=== PATIENT | female | born 1975 | race Two or more races ===

== ENCOUNTER 2017-11-11 03:08 | Emergency (ER) | payer OTHER ==
[~2017-11-11] VITALS: Ht 157.5 cm; Wt 79.4 kg
[2017-11-11 03:20] VITALS: BP 130/87
[2017-11-11] MEDS ORDERED: BENADRYL25 M3 PO (03:26)
[2017-11-11] MEDS ORDERED: Dexamethasone 4mg/ml vial IM ONE (03:30)
--- NOTE | 2017-11-11 03:32 | Emergency Room Report ---
History of Present Illness General Chief Complaint: Allergic Reaction Source: Patient Present Illness HPI 42-year-old female p/w rash on arms, legs, abdomen for few hours, after taking new cough medicine as prescribed by her doctor Rash is limited to skin and does not involve mucosal surfaces. ? severe itchiness, no pain. Denies fever or chills, throat swelling, sob. No n/v/d. No new detergents, no exposure to outside grass/plants/poison misael, no new pets. This is the first time patient has experienced this rash. Allergies: Coded Allergies: No Known Allergies (Unverified , 11/11/17) Patient History Past Medical History: see triage record Past Surgical History: none Pertinent Family History: none Last Menstrual Period: October 18 Now: No Reviewed Nursing Documentation: PMH: Agreed; PSxH: Agreed Nursing Documentation-PMH Past Medical History: No Stated History Review of Systems All Other Systems: negative except mentioned in HPI Physical Exam Vital Signs Date Time Temp Pulse Resp B/P (MAP) Pulse Ox O2 Delivery O2 Flow Rate FiO2 11/11/17 03:11 97.5 91 18 132/87 98 Room Air 97.5 Sp02 EP Interpretation: reviewed, normal General Appearance: alert, GCS 15, non-toxic, moderate distress Head: normocephalic, atraumatic Eyes: bilateral eye normal inspection, bilateral eye PERRL, bilateral eye EOMI ENT: normal ENT inspection, normal pharynx, no angioedema, normal voice, moist mucus membranes Neck: normal inspection, full range of motion, supple Respiratory: normal inspection, lungs clear, normal breath sounds, no respiratory distress, no retraction, no wheezing, speaking full sentences, chest symmetrical Cardiovascular #1: normal inspection, regular rate, rhythm, no edema, normal capillary refill Cardiovascular #2: 2+ radial (R), 2+ radial (L) Gastrointestinal: normal inspection, non tender, soft, non-distended, no guarding Musculoskeletal: normal inspection, back normal, normal range of motion, non- tender Neurologic: normal inspection, alert, oriented x3, responsive, motor strength/ tone normal, sensory intact, normal gait, speech normal Psychiatric: normal inspection, judgement/insight normal, memory normal Skin: other - Erythematous, raised, urticarial, carry on rash generalized, noted on arms legs abdomen tender, blanching Medical Decision Making Diagnostic Impression: Primary Impression: Allergic reaction ER Course 42-year-old female p/w rash on abdomen, arms, legs, after taking new medication DDX: Allergic reaction vs. eczema vs. contact dermatitis vs. viral exanthem vs cellulitis No angioedema Plan: Benadryl Decadron ER course: Patient has remained stable in ED Patient given Decadron and Benadryl No respiratory symptoms Disposition: Patient will be discharged to home. Patient given prescription of Benadryl. Strict return precautions discussed with patient such as fever, chills, rapid spread of rash, chest pain, sob, throat swelling, n/v/d. Patient is to follow up with their PMD within 5 days. Patient verbalized understanding and agrees with plan. Please note that this Emergency Department Report was dictated using [employer] processing supervisor technology software, occasionally this can lead to erroneous entry secondary to interpretation by the dictation equipment Last Vital Signs Date Time Temp Pulse Resp B/P (MAP) Pulse Ox O2 Delivery O2 Flow Rate FiO2 11/11/17 03:11 97.5 91 18 132/87 98 Room Air 97.5 Disposition: HOME, SELF-CARE Condition: Improved Scripts Diphenhydramine HCl (Benadryl) 25 Mg Capsule 25 MG PO Q6H, #30 CAP Prov: Oswaldo Yu M.D. 11/11/17 Patient Instructions: Estrella Montalvoto-Read Oswaldo Yu M.D. Nov 11, 2017 03:32
[2017-11-11 03:43] VITALS: BP 130/87
== END 2017-11-11 03:43 | disposition home or self-care (01) ==
LOC: EMR 03:20
DX: T78.40XA Allergy, unspecified, initial encounter (principal); X58.XXXA Exposure to other specified factors, initial encounter; R21 Rash and other nonspecific skin eruption
CPT/HCPCS: 96372; 99283; J1100

== ENCOUNTER 2019-03-19 17:32 | Emergency (ER) | payer OTHER ==
[~2019-03-19] VITALS: Ht 154.9 cm; Wt 79.4 kg
[~2019-03-19 17:32] MED LIST: BENADRYL25 M3 PO
[2019-03-19] MEDS ORDERED: PROZAC10 MG ORAL (17:46)
[2019-03-19] MEDS ORDERED: METFORMIN HCL500 M1 ORAL (17:46)
[2019-03-19] MEDS ORDERED: Albuterol ud Inhalation HHN ONE (18:15)
[2019-03-19] MEDS ORDERED: Ipratropium 0.02% Inh Soln 2.5ml UD HHN ONE (18:15)
[2019-03-19] MEDS ORDERED: Methocarbamol 750mg tab ORAL ONE (18:30)
[2019-03-19 18:42] VITALS: BP 160/81
--- NOTE | 2019-03-19 18:44 | NUR ---
ED Nurse Note: Patient walked in to ER c/o coughing for 2 months. pt aao x4 and ambulatory. skin clean and intact. calm and cooperative. no acute distress noted but coughing and congestion noted. pt c/o chest pain due to coughing for 2 months.
--- NOTE | 2019-03-19 19:00 | NUR ---
HAND-OFF: Report given to BRITTANEY Moreira. pt is getting breathing treatment at this moment.
--- NOTE | 2019-03-19 19:15 | NUR ---
ED Nurse Note: Received. Breathing treatment in progress; lung sounds clear and equal.
[2019-03-19] MEDS ORDERED: IBUPROFEN600 MG ORAL (19:45)
[2019-03-19] MEDS ORDERED: PROAIR HFA8.5 GM INH (19:45)
[2019-03-19] MEDS ORDERED: PROMETHAZINE-D118 ML ORAL (19:45)
[2019-03-19 19:50] VITALS: BP 160/81
--- NOTE | 2019-03-19 21:36 | Emergency Room Report ---
History of Present Illness General Chief Complaint: Upper Respiratory Illness Source: Patient Present Illness HPI The patient is a 43-year-old female presenting for approximately 1 month of intermittent cough. Air conditioning makes it worse. R lower back pain began 3 days prior after coughing fit. Pain is a 9/10 dull ache and does not radiate, worse with cough. She admits to Hx of asthma but has not had to use medication in years. She denies any sick contacts or recent travel. She denies fever, chills, hemoptysis, night sweats, weight loss. Allergies: Coded Allergies: No Known Allergies (Unverified , 11/11/17) Patient History Past Medical History: see triage record Pertinent Family History: none Last Menstrual Period: february Now: No Reviewed Nursing Documentation: PMH: Agreed; PSxH: Agreed Nursing Documentation-PMH Past Medical History: No Stated History Hx Diabetes: Yes History Of Psychiatric Problem: Yes - depression Review of Systems All Other Systems: negative except mentioned in HPI Physical Exam Vital Signs Date Time Temp Pulse Resp B/P (MAP) Pulse Ox O2 Delivery O2 Flow Rate FiO2 03/19/19 17:42 100.4 106 16 160/81 (107) 95 Room Air 03/19/19 18:39 21 Sp02 EP Interpretation: reviewed, normal General Appearance: no apparent distress, alert, GCS 15, non-toxic Head: normocephalic, atraumatic Respiratory: chest non-tender, no accessory muscle use, speaking full sentences , wheezing Cardiovascular #1: regular rate, rhythm, no edema Genitourinary: normal inspection, no CVA tenderness Musculoskeletal: back normal, gait/station normal, normal range of motion, tender - R lumbar paraspinal muscles with light touch Neurologic: alert, oriented x3, normal gait Psychiatric: judgement/insight normal, memory normal, mood/affect normal, no suicidal/homicidal ideation Lymphatic: no adenopathy Medical Decision Making PA Attestation Dr. Aguilar is my supervising physician. Patient management was discussed with my supervising physician Diagnostic Impression: Primary Impression: Asthma Qualified Codes: J45.21 - Mild intermittent asthma with (acute) exacerbation Additional Impression: Lumbar strain Qualified Codes: S39.012A - Strain of muscle, fascia and tendon of lower back , initial encounter ER Course The patient is a 43-year-old female presenting for approximately 1 month of intermittent cough. Differential diagnoses considered but not limited to: Asthma exacerbation, bronchitis, pneumonia, muscle spasm, among others Physical exam: No apparent distress. No resp distress HEENT exam is unremarkable Lungs: Mild wheezing bilaterally. Chest is nontender. No respiratory distress. No accessory muscle use. TTP over the R lumbar paraspinal muscles with light touch. No cva tenderness Abd is soft and non tender The patient was given a breathing treatment and is feeling much better. Lungs sounds have improved Note: Was not informed of pt of being febrile while in ER. CXR unremarkable. She stated she has apt with PCP in the coming week. Patient is discharged home with a prescription for albuterol, cough medication, and albuterol and will followup with PMD this week as discussed. ER precautions are given Chest X-Ray Diagnostic Results Chest X-Ray Diagnostic Results : Chest X-Ray Ordered: Yes # of Views/Limited/Complete: 1 View, Limited Indication: Other - cough EP Interpretation: Yes PA Xray: Interpretation reviewed, by supervising MD, and agrees with findings. Interpretation: no consolidation, no effusion, no pneumothorax, no acute cardiopulmonary disease Impression: No acute disease Electronically Signed by: Weston Spence PA-C Last Vital Signs Date Time Temp Pulse Resp B/P (MAP) Pulse Ox O2 Delivery O2 Flow Rate FiO2 03/19/19 19:50 100.4 57 18 160/81 99 Room Air 21 Status: improved Disposition: HOME, SELF-CARE Condition: Improved Scripts D-Methorphan Hb/Prometh Hcl* (PROMETHAZINE-DM SYRUP*) 118 Ml Syrup 5 ML ORAL Q6H PRN for For Cough, #118 ML 0 Refills Prov: TERZIAN,WESTON P.A. 03/19/19 Albuterol Sulfate* (PROAIR HFA*) 8.5 Gm Hfa.aer.ad 2 PUFFS INH Q6H, #8.5 GM 0 Refills Prov: TERZIAN,WESTON P.A. 03/19/19 Ibuprofen* (MOTRIN*) 600 Mg Tablet 600 MG ORAL Q8H PRN for For Pain, #30 TAB 0 Refills Prov: TERZIAN,WESTON P.A. 03/19/19 Referrals: NON PHYSICIAN (PCP) Patient Instructions: Asthma, Adult, Muscle Strain Additional Instructions: I discussed my findings with the patient. All questions and concerns have been answered. Treatment and medication compliance have been addressed. I advised the patient that they need to follow up with PMD in 3-5 days. Return to ED if symptoms worsen, new symptoms arise, or if needed for any reason. Patient verbalized understanding of discharge instructions. WESTON SPENCE Mar 19, 2019 21:36
--- NOTE | 2019-03-20 12:35 | Diagnostic Imaging Report ---
Indication: Cough Comparison: None A single view chest radiograph was obtained. Findings: Cardiomediastinal appearance is within normal limits for age. The lungs are clear. Pulmonary vascularity is appropriate. The diaphragmatic contour is smooth and costophrenic angles are sharp. No pleural effusions are identified. The bones are unremarkable. Impression: No acute findings
== END 2019-03-19 19:50 | disposition home or self-care (01) ==
LOC: EMR 19:45
DX: J45.21 Mild intermittent asthma with (acute) exacerbation (principal); S39.012A Strain of muscle, fascia and tendon of lower back, initial encounter; X58.XXXA Exposure to other specified factors, initial encounter; Y92.9 Unspecified place or not applicable; E11.9 Type 2 diabetes mellitus without complications; F32.9 Major depressive disorder, single episode, unspecified
CPT/HCPCS: 71045; 94640; 99284

== ENCOUNTER 2019-07-22 16:43 | Emergency (ER) | payer OTHER ==
[~2019-07-22] VITALS: Ht 154.9 cm; Wt 77.1 kg
[~2019-07-22 16:43] MED LIST changes: +IBUPROFEN600 MG ORAL; +METFORMIN HCL500 M1 ORAL; +PROAIR HFA8.5 GM INH; +PROMETHAZINE-D118 ML ORAL; +PROZAC10 MG ORAL
[2019-07-22 17:02] VITALS: BP 133/89
--- NOTE | 2019-07-22 17:12 | NUR ---
ED Nurse Note: PT WALKED IN DUE TO LEFT KNEE PAIN AND SWELLING X 2 YEARS. DENIES ANY INJURY OR TRAUMA. AAO X4, AMBULATORY, NOTED MILD SWELLING ON LEFT KNEE. STATES PAIN IS RELIEVED BY REST AND AGGRAVATED BY MOVEMENT.
--- NOTE | 2019-07-22 17:28 | Emergency Room Report ---
History of Present Illness General Chief Complaint: Pain Source: Patient, Medical Record Present Illness HPI Patient is a 43-year-old female presents after increased left knee pain. Patient denies any other locations of injury. She denies any recent trauma. She reports having intermittent episodes of increased pain to the lateral aspect of the knee worse with movement. She does report having increased difficulty with bending and extending her knee. She denies any recent injuries. She denies any prior dislocation. Allergies: Coded Allergies: No Known Allergies (Unverified , 11/11/17) Patient History Past Medical History: see triage record Last Menstrual Period: 07/18/2019 Now: No : 5 Para: 5 Reviewed Nursing Documentation: PMH: Agreed; PSxH: Agreed Nursing Documentation-PMH Hx Asthma: Yes Hx Diabetes: Yes Review of Systems All Other Systems: negative except mentioned in HPI Physical Exam Vital Signs Date Time Temp Pulse Resp B/P (MAP) Pulse Ox O2 Delivery O2 Flow Rate FiO2 07/22/19 17:02 98.2 80 18 133/89 (104) 97 Room Air General Appearance: well appearing, no apparent distress, alert, GCS 15, non- toxic Head: normocephalic, atraumatic ENT: hearing grossly normal, normal voice Neck: full range of motion, supple Respiratory: chest non-tender, lungs clear, no respiratory distress, speaking full sentences Cardiovascular #1: normal inspection Gastrointestinal: normal inspection Musculoskeletal: other - normal ROM, no joint effusion, slight clicking with ROM Neurologic: alert, motor strength/tone normal, container filler III-XII nml as tested, EOM palsy, oriented x3, normal gait Psychiatric: mood/affect normal Skin: no rash Medical Decision Making Diagnostic Impression: Primary Impression: Knee pain, chronic ER Course Patient presented for increased left knee pain. Differential diagnosis include was not limited to patellofemoral syndrome, patellar subluxation, ligamentous laxity, contusion among others. Patient has a benign exam and does not appear to require laboratory testing at this time.Patient's exam appears to be benign. She appears to have some chronic issue to her left knee which does not appear to be acutely exacerbated. Patient was given a prescription for nonsteroidal anti-inflammatory medications. She advised to follow-up with her primary care physician for recheck. She is advised that she should seek physical therapy.The patient is advised to follow up with primary care doctor in 1-2 days. Patient is advised to return if any worsening condition or if any changes in status that are concerning. This report is dictated with [employer] warehouse examiner software which may occasionally lead to discrepancies related to use of this software. Labs Test 07/22/19 17:30 Urine HCG, Qualitative Negative (NEGATIVE) Last Vital Signs Date Time Temp Pulse Resp B/P (MAP) Pulse Ox O2 Delivery O2 Flow Rate FiO2 07/22/19 17:02 98.2 80 18 133/89 97 Room Air Status: improved Disposition: HOME, SELF-CARE Condition: Stable Scripts Diclofenac Sodium (VOLTAREN) 100 Gm Gel..gram. 5 GM TP DAILY, #100 GM Prov: Atif Kim MD 07/22/19 Referrals: [facility],REF (PCP) Atif Kim MD Jul 22, 2019 17:28
--- NOTE | 2019-07-22 17:47 | NUR ---
ED Nurse Note: OLIVIA DIE DESIGNER AT THE BED SIDE.
[2019-07-22] MEDS ORDERED: VOLTAREN100 G1 TP (18:07)
[2019-07-22 18:21] VITALS: BP 29/75
--- NOTE | 2019-07-22 18:21 | NUR ---
ER DISCHARGE NOTE: Patient is cleared to be discharged per ERMD, pt is aox4, on room air, with stable vital signs. pt was given dc and prescription instructions, pt was able to verbalize understanding, pt id band removed. pt is able to ambulate with steady gait. pt took all belongings and left with her daughter.
--- NOTE | 2019-07-22 19:04 | Diagnostic Imaging Report ---
EXAM: XR Left Knee, 3 Views CLINICAL HISTORY: PAIN TECHNIQUE: Three views of the left knee. COMPARISON: No relevant prior studies available. FINDINGS: Bones/joints: No acute fracture. No dislocation. Soft tissues: Unremarkable. IMPRESSION: No acute osseous abnormalities.
== END 2019-07-22 18:21 | disposition home or self-care (01) ==
LOC: EMR 17:13
DX: M25.562 Pain in left knee (principal); G89.29 Other chronic pain; E11.9 Type 2 diabetes mellitus without complications
CPT/HCPCS: 73562; 81025; Z7502; 99283